=== PATIENT | female | born 2000 | race Caucasian/White ===

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

== ENCOUNTER 2018-05-16 18:42 | Emergency (ER) | payer OTHER ==
[~2018-05-16] VITALS: Ht 175.3 cm; Wt 83.9 kg
[~2018-05-16 18:42] MED LIST changes: +AMOXICILLIN 50500 MG PO; +NAPROSYN500 MG PO
[2018-05-16] MEDS ORDERED: FLEXERIL PO (19:39)
[2018-05-16] MEDS ORDERED: ROBAXIN 750 MG750 M1 PO (19:39)
[2018-05-16 19:56] VITALS: BP 129/64
== END 2018-05-16 19:56 | disposition home or self-care (01) ==
LOC: ER 18:42
DX: M62.830 Muscle spasm of back (principal); F17.210 Nicotine dependence, cigarettes, uncomplicated

== ENCOUNTER 2019-06-19 08:34 | Emergency (ER) | payer OTHER ==
[~2019-06-19] VITALS: Ht 177.8 cm; Wt 99.8 kg
[~2019-06-19 08:34] MED LIST changes: +FLEXERIL PO; +ROBAXIN 750 MG750 M1 PO
[2019-06-19] MEDS ORDERED: TYLENOL EXTRA500 MG PO (09:54)
[2019-06-19] MEDS ORDERED: PROMETH-CODEIN 65 ML PO (09:54)
[2019-06-19] MEDS ORDERED: IBUPROFEN 600600 M1 PO (09:54)
[2019-06-19 10:14] VITALS: BP 117/69
== END 2019-06-19 10:26 | disposition home or self-care (01) ==
LOC: ER 08:34
DX: M79.10 Myalgia, unspecified site (principal); R50.9 Fever, unspecified; R05 Cough; F17.210 Nicotine dependence, cigarettes, uncomplicated

== ENCOUNTER 2020-07-20 00:29 | Emergency (ER) | payer OTHER ==
[~2020-07-20] VITALS: Ht 175.3 cm; Wt 81.7 kg
[~2020-07-20 00:29] MED LIST changes: +PROMETH-CODEIN 65 ML PO; +TYLENOL EXTRA500 MG PO
[2020-07-20 00:51] LABS: ABSOLUTE NEUTROPHILS 5.9 thou/uL (1.4-8.2); BASOPHILS 0.6 % (0.0-2.0); EOSINOPHILS 1.2 % (0.0-3.0); HEMATOCRIT 39.2 % (37.0-47.0); MCH 28.9 pg (26.0-34.0); MCHC 33.1 g/dL (28.0-37.0); MCV 87.3 fL (80.0-100.0); MONOCYTES 5.9 % (1.0-8.0); PLATELET COUNT 379 thou/uL (150-400); POLYS 61.3 % (36.0-66.0); RBC 4.49 mil/uL (4.20-5.00); RDW 12.1 % (10.5-14.5); WBC 9.6 thou/uL (4.0-11.0)
[2020-07-20 01:04] LABS: URINE BILIRUBIN NEGATIVE (Negative); URINE BLOOD TRACE (Negative); URINE CLARITY CLEAR; URINE COLOR YELLOW; URINE GLUCOSE-RANDOM* NEGATIVE (Negative); URINE KETONES NEGATIVE (Negative); URINE NITRITE-REFLEX NEGATIVE (Negative); URINE PROTEIN (DIPSTICK) NEGATIVE (Negative); URINE SPECIFIC GRAVITY <= 1.005 (1.005-1.035); URINE UROBILINOGEN 0.2 E.U./dl (0.2-1.0)
[2020-07-20 01:06] LABS: URINE LEUKOCYTES-REFLEX 2+ (Negative)
[2020-07-20 01:07] LABS: ANION GAP 10 mmol/L (7-16); BUN 13 mg/dL (7-18); CALCIUM 9.1 mg/dL (8.5-10.1); CHLORIDE 99 mmol/L (98-107); CO2 27 mmol/L (21-32); CREATININE 0.7 mg/dL (0.6-1.0); GLUCOSE 92 mg/dL (74-106); SODIUM 136 mmol/L (136-145)
[2020-07-20 01:08] LABS: APTT 24.6 Seconds (24.5-32.8); D-DIMER 0.31 ug/mLFEU (0.19-0.50); PROTIME 10.4 Seconds (9.3-11.4)
[2020-07-20 01:11] LABS: AMP/METHAMP POSITIVE (Negative); BARBITURATES Negative (Negative); BENZODIAZEPINES Negative (Negative); COCAINE Negative (Negative); METHADONE Negative (Negative); OPIATES Negative (Negative); PCP Negative (Negative)
[2020-07-20 01:25] LABS: ALBUMIN 3.8 g/dL (3.4-5.0); LIPASE 151 U/L (73-393); SGOT 50 U/L (15-37); SGPT 60 U/L (14-59); TOTAL BILIRUBIN 0.2 mg/dL (0.2-1.0); TOTAL PROTEIN 7.6 g/dL (6.4-8.2); TROPONIN-I <0.06 ng/mL (<0.06)
[2020-07-20 01:25] LABS: CASTS None Seen /LPF (None Seen); CRYSTALS None Seen /LPF (None Seen); MUCUS 0-3 Light strn/LPF (None Seen); SQUAMOUS 0-3 Few /LPF (0-3); URINE RBC 0-2 Rare /HPF (0-2); URINE WBC-REFLEX 6-15 Few /HPF (0-5)
[2020-07-20 02:28] VITALS: BP 122/83
--- NOTE | 2020-07-20 07:03 | EKG ---
[place] [address] 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: [employer]IESHA : 2000 Requested By: Kimberly De Dios Order Number: [id number] MD: Jaylan Soni Measurements Intervals Tow Rate: 90 P: 17 CA: 109 QRS: 53 QRSD: 86 T: 42 QT: 344 QTc: 421 Interpretive Statements Sinus rhythm Short CA interval Compared to ECG 02/22/2017 01:38:20 Short CA interval now present Sinus tachycardia no longer present Electronically Signed On 07-20-2020 7:03:46 CDT by Jaylan Soni [email or web address] <ELECTRONICALLY SIGNED> By: Jaylan Soni MD, [facility] 07/20/20 0703 0035 0035 Jaylan Soni MD, FACC /EPI
== END 2020-07-20 02:30 | disposition home or self-care (01) ==
LOC: ER 00:29
PROVIDERS: Emergency Medicine
DX: R07.89 Other chest pain (principal); E11.9 Type 2 diabetes mellitus without complications; F17.210 Nicotine dependence, cigarettes, uncomplicated

== ENCOUNTER 2021-01-04 19:55 | Emergency (ER) | payer OTHER ==
[~2021-01-04] VITALS: Ht 177.8 cm; Wt 90.7 kg
[2021-01-04 20:00] VITALS: BP 115/73
== END 2021-01-04 20:50 | disposition left against medical advice (07) ==
LOC: ER 19:55
DX: O26.891 Other specified pregnancy related conditions, first trimester (principal); M54.5 Low back pain; M54.6 Pain in thoracic spine; F17.210 Nicotine dependence, cigarettes, uncomplicated; Z3A.08 8 weeks gestation of pregnancy